=== PATIENT | male | born 1950 | race Caucasian/White ===

== ENCOUNTER 2017-03-15 10:34 | Observation (INO) | payer MEDICARE, OTHER ==
[2017-03-15] VITALS (15 sets, daily range): BP systolic 154–194; BP diastolic 68–91; PULSE 50–54; RESP 14–24; Ht 177.8 cm; Wt 65.0 kg
[~2017-03-15] VITALS: Ht 177.8 cm; Wt 65.0 kg
[~2017-03-15 10:34] MED LIST: APIX2.5T PO; ASPI-664 PO; ATOR20TA38 PO; BENA40TA54 PO; CARV25TA97 PO; CLON0.3T PO; DILT240C PO; GLIP-95 PO; HYDR-3671 PO; HYDR12.58 PO; ISOS60TA PO; LEVO25TA9 PO; TAMS0.4C2 PO
[2017-03-15] MEDS ORDERED: CARV6.2579 PO (11:07)
[2017-03-15] MEDS ORDERED: CLIN-73 PO (11:09)
[2017-03-15] MEDS ORDERED: LEVE500T8 PO (11:11)
[2017-03-15] MEDS ORDERED: AMLO-145 PO (11:13)
[2017-03-15] MEDS ORDERED: LOSA25TA5 PO (11:13)
[2017-03-15] MEDS ORDERED: INSU100V3 IJ (11:18)
[2017-03-15 11:33] LABS: ADD SCAN DIFF NO
[2017-03-15 11:37] LABS: BASOPHILS % 0.5 % (0.0-2.0); EOSINOPHILS # 0.2 10^3/ul (0.0-0.5); EOSINOPHILS % 3.8 % (0.0-7.0); HEMATOCRIT 30.1 % (42.0-52.0); HEMOGLOBIN 9.9 g/dl (14.0-18.0); LYMPHOCYTES # 0.7 10^3/ul (0.8-2.9); LYMPHOCYTES % 17.9 % (15.0-51.0); MEAN CORPUSCULAR HEMOGLOBIN 31.3 pg (29.0-33.0); MEAN CORPUSCULAR HGB CONC 32.9 g/dl (32.0-37.0); MEAN CORPUSCULAR VOLUME 95.3 fl (82.0-101.0); MEAN PLATELET VOLUME 11.1 fl (7.4-10.4); MONOCYTE # 0.3 10^3/ul (0.3-0.9); MONOCYTES % 7.1 % (0.0-11.0); NEUTROPHIL # 2.8 10^3/ul (1.6-7.5); NEUTROPHILS % 70.4 % (39.0-77.0); PLATELET COUNT 163 10^3/UL (140-415); RED BLOOD COUNT 3.16 10^6/ul (4.70-6.10); RED CELL DISTRIBUTION WIDTH 12.4 % (11.5-14.5)
[2017-03-15] MEDS ORDERED: LIDOCAINE 1% (MDV) 20 ML INJ ONE (11:39)
[2017-03-15] MEDS ORDERED: BUPIVACAINE 0.5% (SDV) 30 ML INJ ONE (11:40)
[2017-03-15] MEDS ORDERED: SOD CHLORIDE 0.9% 500 ML ONE (11:40)
[2017-03-15 11:54] LABS: INR 1.04; PROTIME 13.6 Sec (12.2-14.2); PT RATIO 1.1
[2017-03-15 11:55] LABS: PARTIAL THROMBOPLASTIN TIME 30.9 Sec (25.0-35.0); POTASSIUM 4.5 mmol/L (3.5-5.1)
[2017-03-15 11:56] LABS: CALCIUM 9.1 mg/dl (8.4-10.2); CREATININE 1.07 mg/dl (0.61-1.24)
[2017-03-15] MEDS ORDERED: POLYMYXIN/BACITRACIN 1L IRRIG IRR SCH (12:00)
[2017-03-15] MEDS ORDERED: CEFAZOLIN 1 GM/50 ML (PMX) 50 ML IVPB ONE (12:02)
[2017-03-15] MEDS ORDERED: FENTAnyl 50 MCG/ML VIAL ONE (12:23)
[2017-03-15] MEDS ORDERED: PROPOFOL 20 ML ONE (12:26)
[2017-03-15] MEDS ORDERED: SOD CHLORIDE 0.9% 1,000 ML IV SCH (12:56)
[2017-03-15] MEDS ORDERED: ACETAMINOPHEN 325 MG TAB PO PRN ×2 (13:00→18:30)
--- NOTE | 2017-03-15 14:41 | RADRPT ---
PROCEDURE: Chest Radiograph. CLINICAL INDICATION: Post procedure TECHNIQUE: Single frontal chest radiograph. COMPARISON: Chest radiograph 07/09/2014 FINDINGS: A left chest wall dual lead implantable pacer is in place. The heart is magnified. Atherosclerotic calcifications are present. The patient is status post sternotomy. An atrial occlusion device is in place. There is no pneumothorax No infiltrate or effusion is seen. The bones are intact. IMPRESSION: 1. No pneumothorax. 2. Left chest wall dual lead implantable pacer. 3. Atherosclerotic vascular disease. RPTAT: KK .Yevgeniy London MD, MD Date Time Electronically viewed and signed by .Yevgeniy London MD, MD on 03/15/2017 14:41 .B/
[2017-03-15] MEDS ORDERED: BIVALIRUDIN 250MG /NS 50 ML 50 ML IVPB ONE (15:24)
[2017-03-15] MEDS ORDERED: ONDANSETRON 4 MG INJ IV PRN (18:30)
[2017-03-15] MEDS ORDERED: HYDROCODONE/APAP (5/325) TAB PO PRN (18:30)
[2017-03-15] MEDS ORDERED: NACL 0.9% 3 ML SYG IV SCH (18:30)
[2017-03-15] MEDS ORDERED: HYDROmorphONE 1 MG/ML SYG IV PRN (18:30)
[2017-03-15] MEDS ORDERED: DOCUSATE SODIUM 100 MG CAP PO PRN (18:30)
[2017-03-15] MEDS ORDERED: DEXTROSE 50% 50 ML SYRINGE IV PRN ×2 (19:00)
[2017-03-15] MEDS ORDERED: GLUCAGON 1 MG INJ IM PRN (19:00)
[2017-03-15] MEDS ORDERED: GLUCOSE GEL 15 GRAM TUBE PO PRN ×2 (19:00)
[2017-03-15] MEDS ORDERED: GLUCOSE GEL 15 GRAM TUBE BUCCAL PRN (19:00)
--- NOTE | 2017-03-15 21:08 | HP ---
Date/Time of Note Date/Time of Note DATE: 03/15/17 TIME: 20:39 Assessment/Plan VTE Prophylaxis VTE Prophylaxis Intervention: SCD's Lines/Catheters IV Catheter Type (from Nrsg): Peripheral IV Assessment/Plan Problems: (1) Type 2 diabetes mellitus Status: Chronic Comment: Add tradjenta 5 mg/d. Check FS and give ISS if FS elevated (2) Hypertension Status: Chronic Comment: Restart home antihypertensive meds (3) Hyperlipidemia Status: Chronic Comment: Not on antihyperlipidemic agent. 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 Patient was in [employer] processing being prepared for procedure and instead of receiving antibiotic as scheduled, was administered bivalirudin, an anticoagulant. Determining the procedure would not be tolerated due to increased bleeding risk, the patient was admitted for observation w/ plan to have procedure performed tomorrow when med wears off. ROS Subjective hx not possible: pt non-verbal PMH/Family/Social Past Medical History Medical History: angina, congestive heart failure, coronary artery disease, diabetes, high cholesterol, hypertension, renal disease, other (ED, PVD, A- flutter, BPH) Past Surgical History Past Surgical Hx: angioplasty, coronary bypass surgery, other (toe amputation, pacemaker, inguinal hernia repair, lower extremity bypass grafting, laser surgery of retina, VATS) Family History Significant Family History: cancer (mother), diabetes (brother) Social History b. 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, worked in construction, , 5 children Alcohol Use: sober (previously heavy beer drinker) Smoking Status: Never smoker Exam/Review of Systems Vital Signs Vitals VS - Last 72 Hours, by Label Date Time Temp Pulse Resp B/P Pulse Ox O2 Delivery O2 Flow Rate FiO2 03/15/17 20:14 52 03/15/17 16:37 98.1 59 18 194/ 99 03/15/17 16:15 50 03/15/17 15:59 51 03/15/17 15:45 98.1 56 18 194/82 99 03/15/17 15:16 52 20 162/72 100 Room Air 03/15/17 15:11 50 19 158/78 100 Room Air 03/15/17 15:06 50 21 160/72 100 Room Air 03/15/17 15:04 50 24 163/78 100 Room Air 03/15/17 15:01 51 16 168/78 100 Room Air 03/15/17 14:56 97.8 51 14 175/80 100 Room Air 03/15/17 14:38 51 18 168/79 98 Room Air 03/15/17 13:48 51 170/91 03/15/17 11:22 97.8 54 18 154/68 99 Room Air Vital Signs Date Time Temp Pulse Resp B/P Pulse Ox O2 Delivery O2 Flow Rate FiO2 03/15/17 20:14 52 03/15/17 16:37 98.1 18 194/ 99 03/15/17 15:16 Room Air Exam Constitutional: alert, frail, non-verbal Psych: nl mood/affect, no complaints Eyes: EOMI, PERRL, nl conjunctiva, nl lids, nl sclera ENMT: mucosa pink and moist, nl external ears & nose Neck: non-tender, supple, No bruits, No masses, No thyromegaly Respiratory: clear to auscultation, normal air movement Cardiovascular: regular rate and rhythm, No edema, No murmurs/extra sounds, No rub Gastrointestinal: bowel sounds, nl liver, spleen, non-tender, soft, No mass, No rebound or guarding Musculoskeletal: nl extremities to inspection (R great toe amp) Extremities: No clubbing, No cyanosis, No edema Neurological: No nl speech (aphasic), No nl strength (R-sided weakness) Labs Result Diagram: 03/15/17 1116 03/15/17 1116 Medications Medications Current Medications Amlodipine Besylate (Norvasc) 5 mg DAILY PO ; Start 03/16/17 at 09:00 Carvedilol (Coreg) 6.25 mg BID PO ; Start 03/15/17 at 21:00 Hydralazine HCl (Apresoline) 100 mg TID PO ; Start 03/15/17 at 21:00 Levetiracetam (Keppra) 500 mg BID PO ; Start 03/15/17 at 21:00 Losartan Potassium (Cozaar) 25 mg DAILY PO ; Start 03/15/17 at 18:30 Linagliptin (Tradjenta) 5 mg DAILY PO ; Start 03/16/17 at 09:00 Ondansetron HCl (Zofran Inj) 4 mg Q6H PRN IV NAUSEA AND/OR VOMITING; Start 03/15 at 18:30 Acetaminophen (Tylenol Tab) 650 mg Q6H PRN PO PAIN LEVEL 1-3 OR FEVER; Start at 18:30 Acetaminophen/ Hydrocodone Bitart ([place] (5/325)) 2 tab Q6H PRN PO PAIN LEVEL 7 -10; Start 03/15/17 at 18:30 Hydromorphone HCl (Dilaudid) 0.5 mg Q4H PRN IV PAIN LEVEL 7-10; Start 03/15/17 at 18:30 Docusate Sodium (Colace) 100 mg Q12H PRN PO CONSTIPATION; Start 03/15/17 at 18: 30 Diagnostic Test (Pha) (Accu-Chek) 1 ea 02 XX ; Start 03/16/17 at 02:00 Miscellaneous Information 1 ea NOTE XX ; Start 03/15/17 at 19:00 Glucose (Glutose) 15 gm Q15M PRN PO DECREASED GLUCOSE; Start 03/15/17 at 19:00 Glucose (Glutose) 22.5 gm Q15M PRN PO DECREASED GLUCOSE; Start 03/15/17 at 19:00 Dextrose (D50w Syringe) 25 ml Q15M PRN IV DECREASED GLUCOSE; Start 03/15/17 at 19:00 Dextrose (D50w Syringe) 50 ml Q15M PRN IV DECREASED GLUCOSE; Start 03/15/17 at 19:00 Glucagon (Glucagen) 1 mg Q15M PRN IM DECREASED GLUCOSE; Start 03/15/17 at 19:00 Glucose (Glutose) 15 gm Q15M PRN BUCCAL DECREASED GLUCOSE; Start 03/15/17 at 19: 00 GIO PONCE MD March 15, 2017 21:07
[2017-03-15] MEDS: LEVETIRACETAM 500 MG TAB PO SCH (22:25)
[2017-03-15] MEDS: LOSARTAN 25 MG TAB PO SCH (22:25)
[2017-03-15] MEDS: INSULIN ASPART [NOVOLOG] 3 ML PEN SC SCH (22:32)
[2017-03-16] VITALS (14 sets, daily range): BP systolic 114–170; BP diastolic 60–79; PULSE 50–70; RESP 12–83
[2017-03-16] MEDS ORDERED: ACCU-CHEK XX SCH (02:00)
[2017-03-16] MEDS ORDERED: hydrALAzine 20 MG INJ IV PRN (06:00)
[2017-03-16 08:08] LABS: ADD SCAN DIFF NO
[2017-03-16 08:31] LABS: BASOPHILS % 0.5 % (0.0-2.0); EOSINOPHILS # 0.2 10^3/ul (0.0-0.5); EOSINOPHILS % 4.2 % (0.0-7.0); HEMATOCRIT 32.3 % (42.0-52.0); HEMOGLOBIN 10.8 g/dl (14.0-18.0); LYMPHOCYTES # 0.8 10^3/ul (0.8-2.9); LYMPHOCYTES % 19.3 % (15.0-51.0); MEAN CORPUSCULAR HEMOGLOBIN 31.2 pg (29.0-33.0); MEAN CORPUSCULAR HGB CONC 33.4 g/dl (32.0-37.0); MEAN CORPUSCULAR VOLUME 93.4 fl (82.0-101.0); MEAN PLATELET VOLUME 11.6 fl (7.4-10.4); MONOCYTE # 0.3 10^3/ul (0.3-0.9); MONOCYTES % 7.2 % (0.0-11.0); NEUTROPHIL # 2.8 10^3/ul (1.6-7.5); NEUTROPHILS % 68.6 % (39.0-77.0); PLATELET COUNT 171 10^3/UL (140-415); RED BLOOD COUNT 3.46 10^6/ul (4.70-6.10); RED CELL DISTRIBUTION WIDTH 12.3 % (11.5-14.5); WHITE BLOOD COUNT 4.1 10^3/ul (4.8-10.8)
[2017-03-16 08:45] LABS: POTASSIUM 4.1 mmol/L (3.5-5.1)
[2017-03-16 08:48] LABS: CREATININE 0.93 mg/dl (0.61-1.24)
[2017-03-16 08:49] LABS: CALCIUM 8.9 mg/dl (8.4-10.2)
[2017-03-16] MEDS ORDERED: LINAGLIPTIN 5 MG TABLET PO SCH (09:00)
[2017-03-16] MEDS ORDERED: AMLODIPINE 5 MG TAB PO SCH (09:00)
[2017-03-16] MEDS: LEVETIRACETAM 500 MG TAB PO SCH (09:00)
[2017-03-16] MEDS: LOSARTAN 25 MG TAB PO SCH (09:25)
[2017-03-16] MEDS: INSULIN ASPART [NOVOLOG] 3 ML PEN SC SCH ×3 (09:33→17:53)
[2017-03-16] MEDS ORDERED: POLYMYXIN/BACITRACIN 1L IRRIG IRR SCH (10:30)
[2017-03-16] MEDS ORDERED: LIDOCAINE 1% (MDV) 20 ML INJ ONE (11:04)
[2017-03-16] MEDS ORDERED: BUPIVACAINE 0.5% (SDV) 30 ML INJ ONE ×2 (11:05→11:06)
[2017-03-16] MEDS ORDERED: CEFAZOLIN 1 GM/50 ML (PMX) 50 ML IVPB ONE (11:07)
[2017-03-16] MEDS ORDERED: PROPOFOL 20 ML ONE (11:28)
[2017-03-16] MEDS ORDERED: SOD CHLORIDE 0.9% 1,000 ML IV SCH (12:07)
[2017-03-16] MEDS ORDERED: ACETAMINOPHEN 325 MG TAB PO PRN (12:30)
[2017-03-16] MEDS ORDERED: morphine 2 MG INJ IV PRN (12:30)
--- NOTE | 2017-03-16 12:51 | CONS ---
DATE OF ADMISSION: 03/15/2017 DATE OF CONSULTATION: 03/16/2017 REASON FOR CONSULTATION: Atrial flutter, permanent pacemaker end of life. REQUESTING PHYSICIAN: Dr. Medina HISTORY OF PRESENT ILLNESS: Mr. Barnes is a 66-year-old male with hypertension, diabetes mellitus, d yslipidemia, coronary artery disease, atrial flutter, peripheral vascular disease, chronic kidney di sease, nephrotic syndrome who had a CVA 5 months prior with subsequent aphasia and right hemiparesis , who has been found to have a permanent pacemaker at end of life. The patient had initially presen jonathan to have procedure, but received an incorrect medication and procedure has been deferred until to day. Since arrival, the patient has had heart rates mainly in the 50s, blood pressures elevated at 150s to 170s. Generally, the patient is aphasic sleeping. The patient's labs were notable for mild anemia with a hemoglobin of 9.9, white count of 4.4, a creatinine 1.0, BUN of 28. INR 1.0. Patient underwe nt a chest x-ray revealing left chest wall dual lead implantable pacer. [facility] PAST MEDICAL HISTORY: As above in HPI. MEDICATIONS: In hospital: 1. Norvasc 5 mg daily. 2. Tradjenta 5 mg daily. 3. Hydralazine 10 mg IV q.6h. 4. Carvedilol 6.25 mg p.o. b.i.d. 5. Hydralazine 100 mg t.i.d. 6. Keppra 500 mg b.i.d. 7. Losartan 20 mg daily. 8. Zofran p.r.n. 9. Tylenol p.r.n. 10. [place] p.r.n. 11. Dilaudid p.r.n. ALLERGIES: NO KNOWN DRUG ALLERGIES. SOCIAL HISTORY: No tobacco, ETOH or illicit drug use. FAMILY HISTORY: Negative for sudden cardiac or early CAD. REVIEW OF SYSTEMS: As above in HPI. CONSTITUTIONAL: No fevers, chills. PULMONARY: No current shortness of breath. CARDIOVASCULAR: Permanent pacemaker end of life, history of atrial flutter, history of coronary art steffanie disease. GASTROINTESTINAL: No vomiting. GENITOURINARY: No hematuria. MUSCULOSKELETAL: Degenerative joint. NEUROLOGIC: CVA. PHYSICAL EXAMINATION VITAL SIGNS: Temperature of 98.2, blood pressure 170/75, pulse respiratory rate 20, satting 9 9%. GENERAL: The patient is aphasic. NECK: JVP of 8 cm of water. CHEST: Fair air movement throughout. HEART: Bradycardic, regular rhythm, normal S1, S2, systolic murmur, nondisplaced PMI. ABDOMEN: Positive bowel sounds, soft. EXTREMITIES: No edema, 1+ pulses, bilaterally posterior tibial. NEUROLOGIC: Right hemiplegia. LABORATORY DATA: Most recently from today, sodium 140, potassium 4.1, creatinine 0.9, BUN 24. Whit e count 4.1, hemoglobin 10.8, platelet count of 171. IMAGING STUDIES: As above in HPI. No further imaging studies for my review at this time. ECG: No further electrocardiograms for my review at this time. IMPRESSION: 1. Hypertension, uncontrolled, assess management. 2. Atrial flutter. 3. Permanent pacemaker at end of life. 4. Diabetes mellitus. 5. History of cerebrovascular accident with aphasia and hemiparesis. 6. History of coronary artery disease. 7. Peripheral vascular disease. 8. Chronic kidney disease. RECOMMENDATIONS: 1. At this time, would maintain the patient on telemetry monitoring. 2. Would continue the patient's Norvasc, hydralazine and carvedilol as tolerated with probable need for further titration of Norvasc to improve overall systolic blood pressure control. 3. Patient is to undergo a permanent pacemaker change today. 4. We will follow the patient's blood pressure and thereafter and likely additionally repeat the isaias davis's 2D echo for assessment of ejection fraction, wall motion or any major valve abnormalities. Thank you for allowing me to take part in the care of this patient. I will continue to follow along very closely with you. Further recommendations will be made as the patient progresses through his inpatient hospital clinical course. Dictated By: JOSE EASTON/LORIE Conf#: [id number] DID#: [id number] CC: GIO MEDINA MD;*EndCC*
--- NOTE | 2017-03-16 12:55 | SP ---
DATE OF PROCEDURE: REFERRING PHYSICIAN: Dr. Medina REASON FOR PROCEDURE: The patient with symptomatic bradycardia, tachybrady syndrome. He was noted to have his device at the end of life. The patient required a generator change. PROCEDURE PERFORMED: 1. Dual chamber generator change. 2. Fluoroscopy with interpretation. DEVICE INFORMATION: The old device is [employer] S603, serial number [id number] now explanted. New device is an Accolade DR pacemaker, model number L301, serial number [id number]. Atrial lead is [employer] 4135, serial number [id number]. Ventricular lead is [employer] 4136, serial num vel [id number]. Date of implant for regional leads was 07/30/2009, chronic threshold atrial lead had a P-wave of 1.0 millivolts, threshold is not ascertained because the patient is in atrial fibrillati on. Impedance is 465 ohms ventricular. Ventricular lead had a P-wave of 20.7 millivolts, threshold 1.0 volts at 0.4 msec, impedance 560. Initial mode is a DDD 60. DESCRIPTION OF PROCEDURE: The informed consent was obtained from the patient and his family. The p atient was brought into heart station in a fasting condition. Left side of the chest was prepped an d draped in the usual sterile fashion, 1% lidocaine was used for local analgesia. Anesthesiologist supervised airway and sedation. Antibiotics were given to the patient before the procedure. Using a #10 scalpel, a 3 cm incision was made and using cautery and blunt dissection, the pocket was created. From there, old generator was extracted, it was detached from the lead and new generator was attached. At that time, the patient was in spontaneous pacing. Then the pocket was irrigated w ith an antibiotic solution and entire system was placed inside the pocket. The skin was closed with multiple layers of 2-0 Vicryl sutures. Steri-Strips were placed on top of the incision. The patie nt appears to have tolerated the procedure well. He will have a chest x-ray. He is to have antibio tics and follow with me in the office in 1 week. I would like to thank Dr. Medina for referring this patient for my evaluation. Dictated By: DK BOSTON/LORIE Conf#: [id number] DID#: [id number] CC: GIO MEDINA MD;*[facility]*
[2017-03-16] MEDS ORDERED: CEFAZOLIN 1 GM/50 ML (PMX) 50 ML IVPB SCH (14:00)
--- NOTE | 2017-03-16 18:01 | PDOCDIS ---
Discharge Instructions CONDITION Patient Condition: Fair HOME CARE INSTRUCTIONS: Diet Instructions: Special Diet: Carb-controlled ACTIVITY: Activity Restrictions: No Restrictions Bathing Restrictions: Shower FOLLOW UP/APPOINTMENTS Appointments f/u w/ MATILDA as scheduled and f/u w/ Dr. Fraire as scheduled GIO PONCE MD March 16, 2017 18:01
[2017-03-16] MEDS ORDERED: CEPH500C PO (18:03)
[2017-03-16] MEDS ORDERED: LINA5TAB PO (18:03)
--- NOTE | 2017-03-16 19:58 | RADRPT ---
Echocardiogram Report Patient Name: ASHLEY ALVAREZ Gender: Male Date: 1950 Study Date: 16-Mar-2017 Conservation Engineer: KIMBERLY Hines Location: 5549 Ref. Physician: JOSE HUMPHREY Quality: Adequate Procedures: Transthoracic echocardiogram with complete 2D, M-Mode, and doppler examination. Indications: Hypertension. 2D/M Mode Doppler Measurement Value Normal Ranges Measurement Value Normal Ranges LVIDd 2D 3.8 3.5 - 5.6 cm LVOT Peak Twan 0.8 m/sec LVIDs 2D 2.7 2.1 - 4.1 cm LVOT Peak PG 3.0 mmHg LVPWd 2D 1.0 0.6 - 1.1 cm MV E Peak Twan 0.7 m/sec IVSd 2D 1.3 0.6 - 1.1 cm MV A Peak Twan 0.2 m/sec AoR Diam 2D 2.5 2.0 - 3.7 cm MV E/A 3.0 LA Dimen 2D 3.1 2.3 - 4.0 cm MV Decel Time 190 msec MV E/A 3.0 TR Peak Twan 2.1 m/sec TR Peak PG 17.0 mmHg RVSP 20.0 mmHg Findings Left Ventricle: Normal left ventricular systolic function. Normal left ventricular cavity size. Mild asymmetric septal hypertrophy. Ejection fraction is visually estimated at 50 %. Right Ventricle: Normal right ventricular size. Normal right ventricular systolic function. Pacemaker right heart. Left Atrium: The left atrium is normal in size. Right Atrium: The right atrium is normal in size. Mitral Valve: Normal appearance and function of the mitral valve with trace physiologic regurgitation. Aortic Valve: Aortic cusps appear mildly calcified. Trace to mild aortic valve regurgitation. Tricuspid Valve: Normal appearance of the tricuspid valve. Estimated peak PA systolic pressure 20 mmHg. There is trace tricuspid regurgitation. Pulmonic Valve: Normal pulmonic valve appearance. Pericardium: Normal pericardium with no significant pericardial effusion. Aorta: Normal aortic root. IVC: Normal size and no respiratory collapse consistent with elevated right atrial pressure. Conclusions 1.Normal left ventricular systolic function. Normal left ventricular cavity size. Mild asymmetric septal hypertrophy. Ejection fraction is visually estimated at 50 %. 2.Normal right ventricular size. Normal right ventricular systolic function. Pacemaker right heart. 3.Normal appearance and function of the mitral valve with trace physiologic regurgitation. 4.Aortic cusps appear mildly calcified. Trace to mild aortic valve regurgitation. 5.Normal appearance of the tricuspid valve. Estimated peak PA systolic pressure 20 mmHg. There is trace tricuspid regurgitation. Electronically Signed By: Jose Humphrey 16-Mar-2017 19:57:35 -0700 Patient Name: ASHLEY ALVAREZ Study Date: 16-Mar-2017 [id number]
--- NOTE | 2017-03-16 19:59 | RADRPT ---
Vent Rate: 51 bpm RR Interval: 0 msec NE Interval: 266 msec QRS Duration: 120 msec QT Interval: 446 msec QTC Interval: 411 msec P-R-T [place]: 73 - 42 - -88 degrees Demand pacemaker, ventricular pacing Electronically Signed By: Clifton Humphrey [id number]
--- NOTE | 2017-03-16 20:00 | RADRPT ---
Vent Rate: 52 bpm RR Interval: 0 msec MD Interval: 0 msec QRS Duration: 196 msec QT Interval: 534 msec QTC Interval: 496 msec P-R-T [place]: 0 - -77 - 95 degrees Electronic ventricular pacemaker Electronically Signed By: Clifton Humphrey [id number]
--- NOTE | 2017-03-16 20:03 | RADRPT ---
Vent Rate: 70 bpm RR Interval: 0 msec RI Interval: 0 msec QRS Duration: 188 msec QT Interval: 488 msec QTC Interval: 527 msec P-R-T [place]: 0 - -84 - 89 degrees Electronic ventricular pacemaker Electronically Signed By: Clifton Humphrey [id number]
--- NOTE | 2017-03-16 22:43 | DS ---
Date/Time of Note Date/Time of Note DATE: 03/16/17 TIME: 22:39 Discharge Summary Admission/Discharge Info Admit Date/Time March 15, 2017 at 12:59 Discharge Date/Time March 16, 2017 at 19:03 Final Diagnosis Non-functioning pacemaker battery, medication administration error, diabetic foot ulcers, stage 2 pre-sacral decubitus ulcer Patient Condition: Fair Consults [facility]-cardiology Procedures Change of pacemaker battery Hx of Present Illness 66 y/o H M w/ h/o HTN, T2DM, hyperlipidemia, CAD, A-flutter, PVD, CKD stage 2, nephrotic syndrome, previously seeing me as an outpatient but has not seen me there in 16 months now reveals also has suffered 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 Determining the procedure would not be tolerated due to increased bleeding risk, the patient was admitted for observation w/ plan to have procedure performed tomorrow when med wears off. Hospital Course Pt. stayed in observation overnight while bivalirudin was metabolized. This am taken back to medical laboratory assistant for pacer battery change. Pt. tolerated procedure well. On return was noticed by nursing to have diabetic foot ulcers and stage 2 presacral decubitus. Wound care nursing called who determined these wounds to be well-cared for as an outpatient. Pt. was stable for d/c on oral antibiotics. Home Meds Active Scripts Cephalexin* (Cephalexin*) 500 Mg Capsule, 500 MG PO Q6 for 5 Days, #20 CAP 0 Refills Prov:GIO PONCE MD 03/16/17 Linagliptin (TRADJENTA) 5 Mg Tablet, 5 MG PO DAILY for 30 Days, #30 TAB 3 Refills Prov:GIO PONCE MD 03/16/17 Reported Medications Insulin Regular, Human (Humulin R) 100 Unit/1 Ml Vial, 0 IJ AC LUNCH DINNER, VIAL SLIDING SCALE RORO SCALE GIVEN 03/15/17 Losartan Potassium* (Losartan Potassium*) 25 Mg Tablet, 25 MG PO DAILY, TAB 03/15/17 Amlodipine Besylate* (Amlodipine Besylate*) 5 Mg Tablet, 5 MG PO DAILY, #30 TAB 03/15/17 Levetiracetam* (Levetiracetam*) 500 Mg Tablet, 500 MG PO BID, TAB 03/15/17 Carvedilol* (Carvedilol*) 6.25 Mg Tablet, 6.25 MG PO BID, #60 TAB 03/15/17 Hydralazine Hcl* (Apresoline*) 25 Mg Tab, 100 MG PO TID 10/30/13 Discontinued Reported Medications Clindamycin Hcl* (Clindamycin Hcl*) 300 Mg Capsule, 300 MG PO Q8, CAP FOR 10 DAYS STARTED 02-15-17 03/15/17 Apixaban* (Eliquis*) 2.5 Mg Tablet, 2.5 MG PO BID 07/09/14 Isosorbide Mononitrate* (Isosorbide Mononitrate*) 60 Mg Tab.er.24h, 60 MG PO DAILY, TAB 07/09/14 Glipizide* (Glipizide*) 10 Mg Tablet, 10 MG PO BID, TAB 07/09/14 Aspirin (Aspirin) 81 Mg Tablet.dr, 81 MG PO DAILY 10/30/13 Carvedilol* (Coreg*) 25 Mg Tablet, 25 MG PO BID 10/30/13 Hydrochlorothiazide* (Hydrochlorothiazide*) 12.5 Mg Tablet, 12.5 MG PO DAILY 10/30/13 Benazepril Hcl* (Lotensin*) 40 Mg Tablet, 20 MG PO DAILY 10/30/13 Diltiazem Hcl (DILTIAZEM 24HR ER) 240 Mg Cap.er.24h, 240 MG PO BID 10/30/13 Tamsulosin Hcl* (Tamsulosin Hcl*) 0.4 Mg Cap.er.24h, 0.4 MG PO PM 10/30/13 Atorvastatin Calcium* (Atorvastatin Calcium*) 20 Mg Tablet, 20 MG PO HS 10/30/13 Clonidine Hcl* (Clonidine Hcl*) 0.3 Mg Tablet, 0.1 MG PO Y 10/30/13 Levothyroxine Sodium (Levothroid) 25 Mcg Tablet, 25 MCG PO DAILY 10/30/13 Follow-up Plan f/u w/ PMD as scheduled f/u w/ Dr. Fraire as scheduled Pending Labs Laboratory Tests Test 03/16/17 02:20 03/16/17 07:15 03/16/17 07:53 5/3/17 15:27 Bedside Glucose 154mg/dL (70-220) 146mg/dL (70-220) 164mg/dL (70-220) White Blood Count 4.110^3/ul (4.8-10.8) Red Blood Count 3.4610^6/ul (4.70-6.10) Hemoglobin 10.8g/dl (14.0-18.0) Hematocrit 32.3% (42.0-52.0) Mean Corpuscular Volume 93.4fl (82.0-101.0) Mean Corpuscular Hemoglobin 31.2pg (29.0-33.0) Mean Corpuscular Hemoglobin Concent 33.4g/dl (32.0-37.0) Red Cell Distribution Width 12.3% (11.5-14.5) Platelet Count 92879^3/UL (140-415) Mean Platelet Volume 11.6fl (7.4-10.4) Neutrophils % 68.6% (39.0-77.0) Lymphocytes % 19.3% (15.0-51.0) Monocytes % 7.2% (0.0-11.0) Eosinophils % 4.2% (0.0-7.0) Basophils % 0.5% (0.0-2.0) Nucleated Red Blood Cells % 0.0/100WBC (0.0-0.0) Neutrophils # 2.810^3/ul (1.6-7.5) Lymphocytes # 0.810^3/ul (0.8-2.9) Monocytes # 0.310^3/ul (0.3-0.9) Eosinophils # 0.210^3/ul (0.0-0.5) Basophils # 0.010^3/ul (0.0-0.1) Nucleated Red Blood Cells # 0.010^3/ul (0.0-0.0) Sodium Level 140mmol/L (135-144) Potassium Level 4.1mmol/L (3.5-5.1) Chloride Level 106mmol/L (97-110) Carbon Dioxide Level 25mmol/L (21-31) Anion Gap 13 (8-16) Blood Urea Nitrogen 24mg/dl (7-20) Creatinine 0.93mg/dl (0.61-1.24) Glucose Level 139mg/dl (70-220) Hemoglobin A1c 6.5% (0-5.9) Calcium Level 8.9mg/dl (8.4-10.2) Test 03/16/17 17:33 Bedside Glucose 230mg/dL (70-220) GIO PONCE MD March 16, 2017 22:43
--- NOTE | 2017-03-17 08:07 | CONS ---
DATE OF ADMISSION: 03/15/2017 DATE OF CONSULTATION: 03/15/2017 TYPE OF CONSULTATION: CARDIOLOGY CONSULTATION REFERRING PHYSICIAN: Dr. Wylie. HISTORY OF PRESENT ILLNESS: Mr. Barnes is a 66-year-old gentleman known to me from office visits. T he patient came to my office several days ago for evaluation for a pacemaker device. His pacemaker i s end of life with continuous pacing. I suspect there might be some underlying rhythm with conducti on, but currently the device cannot be interrogated because of the end of life battery status. The patient was scheduled to have an elective generator change today. Risks, benefits and alternatives of the procedure were explained to the patient and he came to the cardiac cath rn in a fasting condition. The patient was prepped on the table and had supervised anesthesiologist. Unfortunately, the patient had Angiomax administered instead of ceftriaxone. The mistake was immediately realized by the staff . There was no obvious bleeding that was ascertained. I think this is an elective procedure which could be deferred for a day, I think for the safety of the patient it would be better to reschedule procedure for another day to avoid pocket complications as during generator change of pocket complic ations upsize, especially with hematoma, it has increased risk of infection and device complications in the future. I will explain this to the family, but in my opinion it is better to defer procedur e until the next day rather than proceed and risk the risk of bleeding, even at a later time today. PAST MEDICAL HISTORY: 1. Hypertension. 2. Dyslipidemia. 3. Coronary artery disease. 4. History of bradycardia 5. History of sick sinus syndrome. 6. Pacemaker now at the end of life. ALLERGIES: NO KNOWN DRUG ALLERGIES. SOCIAL HISTORY: The patient does not smoke, does not drink, does not use any drugs. FAMILY HISTORY: Negative for sudden cardiac or premature coronary artery disease. MEDICATIONS: Medications here have been held, but at home, the patient is on Coreg 12.5, hydralazin e, Losartan, omeprazole and aspirin. PAST MEDICAL HISTORY: Diabetes. REVIEW OF SYSTEMS: CONSTITUTIONAL: No fevers or chills. HEAD: No changes in vision or hearing. CARDIAC: No chest pain reported now. RESPIRATORY: No shortness of breath. GASTROINTESTINAL: No nausea, vomiting. GENITOURINARY: No dysuria, hematuria. NEUROLOGIC: No focal neurologic deficit or disorder, CVA. PSYCHIATRIC: No history of psychiatric illness. PHYSICAL EXAMINATION: VITAL SIGNS: Currently blood pressure ____. Heart rate in the 50s, paced. He is afebrile. GENERAL: He is a thin gentleman in no acute distress, alert and oriented x3, aware of his condition . HEAD: Normocephalic, atraumatic. Eyes anicteric. NECK: Supple. JVD 6-7 cm. There is no lymphadenopathy, no thyromegaly. HEART: Irregular with soft systolic murmur mid chest. ____ changes with respiration. PMI is minim ally displaced. There is no S3 ____. ABDOMEN: Distended, bowel sounds are present. GENITOURINARY: Grossly intact. EXTREMITIES: Show no clubbing, cyanosis, or edema. LABORATORY DATA: Troponin is ____ 0.06. ECG read by me showed mostly signs of paced rhythm and intermittent sinus conduction. ASSESSMENT AND PLAN: 1. End of life pacemaker: Patient has of half-life of pacemaker as described above. The patient h ad an unfortunate situation where Angiomax was administered instead of Ancef. I think it would not be prudent to proceed with surgical intervention in a setting of acute anticoagulation, especially a s patient is stable and I do not think a one day delay of procedure will significantly alter his ove rall prognosis. For now. the patient has been rescheduled for tomorrow and will proceed with a pace maker placement tomorrow. 2. Hypertension: Blood pressure well controlled now. Continue to optimize medical therapy as [place] ant[place]. 3. Diabetes: Continue diabetic optimization and care. I would like to thank ____ for referring this patient for my evaluation. Dictated By: DK BOSTON/LORIE Conf#: [id number] DID#: [id number]
== END 2017-03-16 19:03 | disposition home or self-care (01) ==
LOC: SDS 10:34 → MS4 12:59
PROVIDERS: ADMIT Internal Medicine Clinical Cardiac Electrophysiology; ATTEND Internal Medicine Clinical Cardiac Electrophysiology
DX: I49.5 Sick sinus syndrome (principal); Z45.010 Encounter for checking and testing of cardiac pacemaker pulse generator [battery]; I10 Essential (primary) hypertension; E78.5 Hyperlipidemia, unspecified; I25.10 Atherosclerotic heart disease of native coronary artery without angina pectoris; E11.621 Type 2 diabetes mellitus with foot ulcer; Z79.4 Long term (current) use of insulin; L89.152 Pressure ulcer of sacral region, stage 2; I73.9 Peripheral vascular disease, unspecified; I12.9 Hypertensive chronic kidney disease with stage 1 through stage 4 chronic kidney disease, or unspecified chronic kidney disease; N18.2 Chronic kidney disease, stage 2 (mild); Z86.73 Personal history of transient ischemic attack (TIA), and cerebral infarction without residual deficits; I69.351 Hemiplegia and hemiparesis following cerebral infarction affecting right dominant side; I48.92 Unspecified atrial flutter
CPT/HCPCS: 33228; 71010; 80048; 82962; 83036; 85025; 85610; 85730; 93005; 93306; 96365; 96372; 96375; C1785; G0378; J0360; J0690; J1815; J3010; J7030; J7040; J0583